=== PATIENT | female | born 2000 | race Caucasian/White ===

== ENCOUNTER 2022-02-25 09:25 | Day surgery (SDC) | payer SELFPAY, OTHER ==
[2022-02-25 09:59] LABS: Internal QC Validated? YES +Cl - CLEAR BKGD; Pregnancy, Urine Negative Negative
[2022-02-25] MEDS: Lactated Ringers 1,000 ML 15 ML IV ×3 (10:00→14:23)
[2022-02-25 10:01] VITALS: BP 122/71; PULSE 58; RESP 16; TEMP 36.6; O2SAT 100; BMI 23.1
--- NOTE | 2022-02-25 11:01 | PCM.DC.SUM ---
Providers Primary Care Physician: No Primary Care Phys Reason For Visit: TYMPANOPLASTY Medications at Discharge Home Medications No Known/Unobtainable [No Known Home Medications] 09/17/16 Weight / BMI Weight Weight: 59.2 kg Body Mass Index (BMI) 23.1 ABG / Lab / Microbiology Data Laboratory: Laboratory Results - last 24 hr 02/25/22 09:48: Urine Test Negative Microbiology: Microbiology 02/25/22 09:48 Interface Orders SARS-CoV-2 Antigen (Rapid) - Final D/C Instructions Discharge Diet: No restrictions Discharge Activity: Return to Normal Activity Additional Activity Instructions: Dry ear precautions Additional Dressing/Incision Instructions: Remove and discard ear dressing tomorrow morning. Replace the cotton ball and change as needed. Please Follow Up With: Luis Alfredo Strauss MD When: 3 weeks Meaningful Use Info Meaningful Use Diagnoses (Choose all that apply): None applicable Discharge Plan Admission Attending Provider: Luis Alfredo Strauss Primary Care Provider: Care Physician,No Primary Discharge Orders/Prescriptions Prescriptions: No Action No Known Home Medications RF: 0
[2022-02-25] MEDS: Lidocaine 1% /Epi 1:100 (50ml) 50 ML VIAL (11:49)
[2022-02-25] MEDS: Epinephrine (1 mg/ml) 1 MG/ML VIAL (12:14)
[2022-02-25] MEDS: Ciprofloxacin 0.3% 2.5ml Bottle 1 DRP (12:15)
[2022-02-25] MEDS: Bacitracin 500 UNITS/GM PACKET (13:19)
--- NOTE | 2022-02-25 13:52 | OP.PCM_ITS ---
Report of Operation Date of Procedure: 02/25/22 Pre-Operative Diagnosis: right tympanic membrane perforation right ossicular discontinuity right conductive hearing loss Post-Operative Diagnosis: same Surgery/Procedure Performed:: Right tympanoplasty with ossicular reconstruction [place] of tragal cartilage Description of Surgical Findings:: chorda tympani intact. incudostapedial non union-reconstructed with otomimix Surgeon: Luis Alfredo Strauss Type of Anesthesia: General Anesthesiologist: Chaim Haider Estimated Blood Loss (mL): minimal Description of Procedure: Patient was taken to the operating room on 02/25/2022. She was placed in supine position on the operating table. She was given suf ficient general endotracheal anesthesia. The table was turned 90 degrees in a counterclockwise fashion. The right ear was prepped and draped sterilely. 1% lidocaine with epinephrine was injected into the tragus and meatus. Next a speculum turned patient's right external auditory canal and the external auditory canal skin was injected with 1% lidocaine with epinephrine. Next I made an incision at the edge of the tragal cartilage with a 15 blade. A plane was established sharply on both the medial and lateral aspects of the tragal cartilage. The tragal cartilage was then harvested sharply with scissors. I then irrigated the tragal harvest site with saline. Hemostasis was achieved with bipolar cautery. The incision was then closed with interrupted 6-0 fast- absorbing gut. I placed a quilting suture to close the space as well. Next a speculum was del angel was used. I rimmed the perforation with a King pick. The rim was removed with a cup forceps. I then made an incision from 12:00 to 6:00 inferiorly in the external auditory canal skin with a round [place] blade. The tympanomeatal flap was elevated sharply. The chorda tympani nerve was identified and preserved. Bone was removed from the posterior superior aspect of the bony external auditory canal with curette. It was clear at this point that there was only a fibrous attachment from the incus to the stapes. Upon wiggling the ossicular chain there was no movement of the stapes through the fibrous attachment. I then denuded the incus and stapedial head with a King pick. I was careful not to avulse the stapes. Next I applied adrenaline soaked Gelfoam to the field. Once hemostasis was achieved, the Otomimix was mixed up per flat optical element maker recommendations. I then placed this connecting the free end of the incus to the stapedial head. I then waited 7 minutes for the hydroxyapatite to harden. Next the ossicular chain was wiggled with a gimmick. She had excellent movement of the stapes through the ossicular chain. The Otomimix had adhered beautifully to the stapedial head. I then placed Cipro impregnated Gelfoam into the middle ear space. The tragal cartilage was cut to the appropriate size and placed in underlay fashion beneath the perforation. The tympanomeatal flap was redraped. I then made sure that the cartilage was tucked circumferentially underneath the perforation. The external auditory canal was filled with antibiotic ointment. A Emmanuel dressing was then applied. The patient then awoken about the recovery room in stable condition. Blood loss minimal,replacement none,sponge needle and instrument counts correct were correct at the end of the procedure.
[2022-02-25 14:11] VITALS: BP 116/76; BP 122/71; PULSE 92; RESP 16; TEMP 36.1; O2SAT 99
[2022-02-25 14:15] VITALS: BP 118/84; BP 122/71; PULSE 83; RESP 16; O2SAT 99
[2022-02-25 14:30] VITALS: BP 114/71; BP 122/71; PULSE 73; RESP 16; O2SAT 100
[2022-02-25 14:45] VITALS: BP 115/82; BP 122/71; PULSE 67; RESP 16; TEMP 36.7; O2SAT 99
[2022-02-25 15:08] VITALS: BP 122/71
== END 2022-02-25 23:59 | disposition home or self-care (01) ==
LOC: SDC 09:30 → AC 09:33
PROVIDERS: Anesthesiology; Referring Provider Otolaryngology; Visit Provider Otolaryngology
PROC: (CPT 69633; principal; 2022-02-25 10:30)
DX: H72.01 Central perforation of tympanic membrane, right ear (principal); I27.20 Pulmonary hypertension, unspecified; H74.21 Discontinuity and dislocation of right ear ossicles; H90.11 Conductive hearing loss, unilateral, right ear, with unrestricted hearing on the contralateral side
CPT/HCPCS: 69633; 00120; 81025; 87426; J7120; J2405